=== PATIENT | male | born 1960 | race Caucasian/White ===

== ENCOUNTER 2017-05-01 17:54 | Emergency (ER) | payer OTHER ==
--- NOTE | 2017-05-01 18:36 | UC ---
Hand/Wrist HPI - HPI Summary HPI Summary: 56 yo male injured his left hand hours ago when he fell skiing thinks he hyperextended hand he is right handed - History Of Current Complaint Chief Complaint: UCUpperExtremity Stated Complaint: LEFT HAND INJURY Time Seen by Provider: 05/01/17 18:28 Hx Obtained From: Patient Onset/Duration: Sudden Onset Severity Initially: Moderate Severity Currently: Mild Pain Intensity: 2 Pain Scale Used: 0-10 Numeric Character Of Pain: Dull, Aching Aggravating Factor(s): Movement Alleviating Factor(s): Rest Associated Signs And Symptoms: Positive: Swelling Related History: Dominant Hand Right - Allergies/Home Medications Allergies/Adverse Reactions: Allergies Allergy/AdvReac Type Severity Reaction Status Date / Time Sulfa (Sulfonamide Allergy Rash Verified 05/01/17 18:27 Antibiotics) Home Medications: Home Medications Loratadine 10 mg PO DAILY 05/01/17 [History Confirmed 05/01/17] PMH/Surg Hx/FS Hx/Imm Hx Previously Healthy: Yes - Surgical History Surgical History: None - Family History Known Family History: Positive: Hypertension - Social History Alcohol Use: Occasionally Substance Use Type: None Smoking Status (MU): Never Smoked Tobacco Review of Systems Constitutional: Negative Skin: Negative Eyes: Negative ENT: Negative Respiratory: Negative Cardiovascular: Negative Gastrointestinal: Negative Genitourinary: Negative Motor: Negative Neurovascular: Negative Musculoskeletal: Arthralgia Neurological: Negative Psychological: Negative Is Patient Immunocompromised?: No All Other Systems Reviewed And Are Negative: Yes Physical Exam Triage Information Reviewed: Yes Appearance: Well-Appearing, No Pain Distress, Well-Nourished Vital Signs: Initial Vital Signs Temp 99.0 F 05/01/17 18:23 Pulse 73 05/01/17 18:23 Resp 12 05/01/17 18:23 BP 140/90 05/01/17 18:23 Pulse Ox 100 05/01/17 18:23 Vital Signs Reviewed: Yes Eyes: Positive: Conjunctiva Clear ENT: Positive: Hearing grossly normal. Negative: Nasal congestion, Nasal drainage, Trismus, Muffled voice, Hoarse voice Neck: Positive: Supple Respiratory: Positive: Lungs clear, Normal breath sounds, No respiratory distress, No accessory muscle use Cardiovascular: Positive: RRR, No Murmur Musculoskeletal: Positive: ROM Limited @ - left fingers, Edema @ - dorsum of left hand Neurological: Positive: Alert Psychological Exam: Normal Skin Exam: Normal Procedures - Splinting Location: left hand Hand-Made Type: orthoglass Splint: volar Pre-Proc Neuro Vasc Exam: normal Post-Proc Neuro Vasc Exam: normal Diagnostics - Radiology No standard instances Xray Interpretation: Positive (See Comments) - Minimally displaced fracture through the diaphysis of the left hand middle finger metacarpal.. Radiology Interpretation Completed By: Radiologist Hand/Wrist Course/Dx - Differential Dx/Diagnosis Provider Diagnoses: Minimally displaced fracture through the diaphysis of the left hand middle. finger metacarpal. elevated blood pressure without diagnosis of hypertension Discharge - Discharge Plan Condition: Stable Disposition: HOME Patient Education Materials: Hand Fracture (ED) Referrals: Philip Monterroso MD [Medical Doctor] - As Soon As Possible Gurinder Valderrama MD [Primary Care Provider] - 2 Weeks (bp recheck in 2-8 weeks) Additional Instructions: splint elevate elevate elevate ice tylenol or advil call Dr. Monterroso in AM and make an appt
--- NOTE | 2017-05-01 19:08 | RAD ---
INDICATION: Hyperextension injury COMPARISON: None. TECHNIQUE: 4 views of the left hand were obtained. FINDINGS: There is an obliquely oriented fracture through the diaphysis of the left hand middle finger metacarpal. On the lateral view there appears to be approximately 13 degrees of dorsal angulation. The remaining visualized bones are intact and appropriately aligned. IMPRESSION: Minimally displaced fracture through the diaphysis of the left hand middle finger metacarpal.
== END 2017-05-01 19:07 | disposition home or self-care (01) ==
LOC: UCCORT 17:54
DX: S62.323A Displaced fracture of shaft of third metacarpal bone, left hand, initial encounter for closed fracture (principal); W00.0XXA Fall on same level due to ice and snow, initial encounter; Y93.23 Activity, snow (alpine) (downhill) skiing, snowboarding, sledding, tobogganing and snow tubing; Y92.9 Unspecified place or not applicable; Z88.2 Allergy status to sulfonamides
CPT/HCPCS: 26600; 99201; G0463